=== PATIENT | male | born 1970 | race African-American/Black ===

== ENCOUNTER 2016-12-01 08:10 | Emergency (ER) | payer MEDICARE, OTHER ==
[~2016-12-01] VITALS: Ht 175.3 cm; Wt 128.6 kg
[~2016-12-01 08:10] MED LIST: AMLO10TA2 PO; AMLO5TAB2 PO; Albuterol Sulfate NEB; CALC667C6 PO; CARV6.25 PO; CETI10TA16 PO; CHOL2000 PO; CINA30TA; CYCL10TA2 PO; DARB100D SQ; DIALYVITE PO; DILT360C PO; FLUT16SP NS; FLUT9.9S NS; FURO80TA72 PO; Guaifenesin PO; HUM100VI SQ; INSU100C SQ; INSU100V13 SQ; LEVO500T38 PO; LORA10TA3 PO; LOSA50TA2 PO; MONT10TA6 PO; Non Formulary Item SQ; ONDA4TAB10 PO; SEVE800T9 PO; Sodium Chloride NS; [UNRECOGNIZED DRUG - CODE] SQ
--- NOTE | 2016-12-01 08:42 | PHYS DOC ---
Past Medical History Past Medical History: Diabetes-Type II, Hypertension, Renal Failure, Other Past Surgical History: Other Additional Past Surgical Histo: Left arm A/V fistula ,left retna tear Additional Information: nonsmoker Alcohol Use: None Drug Use: None Adult General Chief Complaint Chief Complaint: HYPOTENSION HPI HPI Patient is a 46 year old male with history of ESRD on HD MWF, DM II, and HTN who presents with report of near-syncopal event during dialysis today. The patient was in the middle of his dialysis when he felt the need to have a bowel movement. He got up to go to the bathroom and felt lightheaded. He had some abdominal cramping and felt nauseated. He vomited once. Staff at the dialysis center reported that they observed what appeared to be some seizure-like activity. The patient reports that he remembers all of the events. He did not lose consciousness. He did not have any incontinence of bowel or bladder. He denies having chest pain, shortness of breath, or headache. The abdominal cramping has resolved, as has the nausea. He feels back to normal without any complaints upon arrival to the emergency department. EMS reported GCS of 15 upon their arrival to the dialysis center without any post-ictal signs. The patient's PCP is Dr. Meghan Cooper. Dr. 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 Review of Systems Review of Systems Constitutional: Denies fever or chills. [] Eyes: Denies change in visual acuity, redness, or eye pain. [] HENT: Denies ear pain, nasal congestion or sore throat. [] Respiratory: Denies cough or shortness of breath. [] Cardiovascular: Denies chest pain, palpitations or edema. [] GI: Denies bloody stools or diarrhea. Reports nausea with one episode of emesis and abdominal cramping, resolved. : Denies dysuria, hematuria or urinary frequency. [] Musculoskeletal: Denies back pain or joint pain. [] Integument: Denies rash or skin lesions. [] Neurologic: Denies headache, focal weakness or sensory changes. Denies incontinence or seizure activity. Reports feeling lightheaded, now resolved. Endocrine: Denies polyuria or polydipsia. [] Psych: Denies anxiety or depression. [] All systems reviewed and negative unless otherwise stated in the HPI. Allergies Allergies Allergies Coded Allergies Type Severity Reaction Last Updated Verified Penicillins Allergy Intermediate 08/04/14 Yes Physical Exam Physical Exam Constitutional: Well developed, well nourished, no acute distress, non-toxic appearance. [] HENT: Normocephalic, atraumatic, bilateral external ears normal, oropharynx moist, no oral exudates, nose normal. [] Eyes: PERRLA, EOMI, no discharge. 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 Neck: Normal range of motion, no tenderness, supple, no stridor. [] Cardiovascular: Heart rate regular rhythm, no murmur [] Lungs & Thorax: Bilateral breath sounds clear to auscultation without wheezes, rales, or rhonchi. Abdomen: Bowel sounds normal, soft, no tenderness, no masses, no pulsatile masses. [] Skin: Warm, dry, no erythema, no rash. [] Back: No tenderness, no CVA tenderness. [] Extremities: No tenderness, no cyanosis, no clubbing, ROM intact, no edema. 2+ pedal pulses bilaterally. There is a palpable thrill in the dialysis shunt in the left upper extremity. Neurologic: Alert and oriented X 3, normal motor function, normal sensory function, no focal deficits noted. CN II-XII grossly intact. Psychologic: Affect normal, judgement normal, mood normal. [] Current Patient Data Vital Signs Vital Signs Date Time Temp Pulse Resp B/P Pulse Ox O2 Delivery O2 Flow Rate FiO2 12/01/16 12:27 80 18 165/98 99 Room Air 12/01/16 08:10 97.9 97.9 Lab Values Laboratory Tests Test 12/01/16 08:50 12/01/16 11:15 White Blood Count 4.1x10^3/uL (4.0-11.0) Red Blood Count 4.17x10^6/uL (4.30-5.70) L Hemoglobin 13.2g/dL (13.0-17.5) Hematocrit 40.6% (39.0-53.0) Mean Corpuscular Volume 97fL (79-100) Mean Corpuscular Hemoglobin 32pg (25-35) Mean Corpuscular Hemoglobin Concent 33g/dL (31-37) Red Cell Distribution Width 15.9% (11.5-14.5) H Platelet Count 178x10^3/uL (140-400) Neutrophils (%) (Auto) 60% (31-73) Lymphocytes (%) (Auto) 31% (24-48) Monocytes (%) (Auto) 6% (0-9) Eosinophils (%) (Auto) 1% (0-3) Basophils (%) (Auto) 1% (0-3) Neutrophils # (Auto) 2.4x10^3uL (1.8-7.7) Lymphocytes # (Auto) 1.3x10^3/uL (1.0-4.8) Monocytes # (Auto) 0.2x10^3/uL (0.0-1.1) Eosinophils # (Auto) 0.1x10^3/uL (0.0-0.7) Basophils # (Auto) 0.1x10^3/uL (0.0-0.2) Sodium Level 140mmol/L (136-145) Potassium Level 4.7mmol/L (3.5-5.1) Chloride Level 96mmol/L (98-107) L Carbon Dioxide Level 34mmol/L (21-32) H Anion Gap 10 (6-14) Blood Urea Nitrogen 73mg/dL (8-26) H Creatinine 13.2mg/dL (0.7-1.3) H Estimated GFR (Cockcroft-Gault) 5.0 Glucose Level 105mg/dL (70-99) H Calcium Level 9.5mg/dL (8.5-10.1) Magnesium Level 2.5mg/dL (1.8-2.4) H Total Bilirubin 0.4mg/dL (0.2-1.0) Direct Bilirubin 0.1mg/dL (0.0-0.2) Aspartate Amino Transferase (AST) 12U/L (15-37) L Alanine Aminotransferase (ALT) 21U/L (16-63) Alkaline Phosphatase 128U/L (46-116) H Creatine Kinase 214U/L (39-308) Creatine Kinase MB (Mass) 1.5ng/mL (0.0-3.6) Creatine Kinase MB Relative Index 0.7% (0-4) Troponin I Quantitative < 0.017ng/mL (0.000-0.055) < 0.017ng/mL (0.000-0.055) BQ-Dvg-Z-Type Natriuretic Peptide 589pg/mL (0-124) H Total Protein 8.2g/dL (6.4-8.2) Albumin 4.5g/dL (3.4-5.0) Lipase 337U/L (73-393) Laboratory Tests 12/01/16 08:50 Laboratory Tests 12/01/16 08:50 EKG EKG EKG at 0841. Heart rate 80 bpm. Sinus rhythm with T-wave inversion in lead aVL. There is no STEMI. Interpreted by Dr. Robles. Radiology/Procedures Radiology/Procedures REASON: near-syncope after dialysis PROCEDURE: PORTABLE CHEST 1V Portable AP upright view CXR: Clinical indications: Blood pressure dropped during dialysis this a.m. History of high blood pressure. Diabetes. Renal disease.. Comparison: July 21, 2016. Findings: No acute lung infiltrate or pleural effusion or pulmonary edema or lung mass or pneumothorax is seen. The heart size, pulmonary vasculature, mediastinum and both nahun are stable. Impression: No acute radiographic abnormality is seen. Course & Med Decision Making Course & Med Decision Making Pertinent Labs and Imaging studies reviewed. (See chart for details) The patient is a 46-year-old male with history of ESRD on HD with DM 2 and HTN who presents after near syncopal episode while at dialysis today. Upon arrival to the emergency department, he does not have any complaints. Vital signs are stable. EKG shows T-wave inversion of aVL without any other acute ischemic changes or STEMI. Chest x-ray is unremarkable. Labs are stable. Initial troponin is negative. The patient agreed to stay in the emergency department for a repeat troponin level to be drawn. The repeat troponin level was negative as well. The patient remained stable in the emergency department without any additional complaints. Return precautions were discussed. He verbalizes understanding and agrees with plan. He is discharged home in stable condition. Patient course was discussed with Dr. Robles, attending physician in the emergency department, who agrees with evaluation and plan. Dragon Disclaimer Dragon Disclaimer This electronic medical record was generated, in whole or in part, using a voice recognition dictation system. Departure Departure Impression: Primary Impression: Near syncope Disposition: HOME, SELF-CARE Condition: STABLE Referrals: MEGHAN COOPER MD (PCP) Patient Instructions: Near-Syncope, [id number] Additional Instructions: You were seen after near-syncope, or nearly passing out, at dialysis. Your labs, chest xray, and EKG were normal today. Please continue with your regularly scheduled dialysis appointments. Please follow up with your primary care doctor in the next 2-3 days, sooner if concerns. Return to the emergency department if you have any new or concerning symptoms. GAUTAM HIDALGO Dec 01, 2016 08:42
--- NOTE | 2016-12-01 08:55 | RAD ---
Portable AP upright view CXR: Clinical indications: Blood pressure dropped during dialysis this a.m. History of high blood pressure. Diabetes. Renal disease.. Comparison: July 21, 2016. Findings: No acute lung infiltrate or pleural effusion or pulmonary edema or lung mass or pneumothorax is seen. The heart size, pulmonary vasculature, mediastinum and both nahun are stable. Impression: No acute radiographic abnormality is seen.
[2016-12-01 09:16] LABS: CALCIUM 9.5 mg/dL (8.5-10.1); CREATININE 13.2 mg/dL (0.7-1.3); POTASSIUM 4.7 mmol/L (3.5-5.1)
[2016-12-01 09:18] LABS: BASO # 0.1 x10^3/uL (0.0-0.2); BASO % 1 % (0-3); EOS % 1 % (0-3); HEMATOCRIT 40.6 % (39.0-53.0); HEMOGLOBIN 13.2 g/dL (13.0-17.5); LYMPH # 1.3 x10^3/uL (1.0-4.8); LYMPH % 31 % (24-48); MEAN CORPUSCULAR HEMOGLOBIN 32 pg (25-35); MEAN CORPUSCULAR HGB CONC 33 g/dL (31-37); MEAN CORPUSCULAR VOLUME 97 fL (79-100); MONO % 6 % (0-9); NEUT % 60 % (31-73); PLATELET COUNT 178 x10^3/uL (140-400); RED BLOOD COUNT 4.17 x10^6/uL (4.30-5.70); RED CELL DISTRIBUTION WIDTH 15.9 % (11.5-14.5); WHITE BLOOD COUNT 4.1 x10^3/uL (4.0-11.0)
[2016-12-01 09:22] LABS: ALBUMIN 4.5 g/dL (3.4-5.0); DIRECT BILIRUBIN 0.1 mg/dL (0.0-0.2); MAGNESIUM 2.5 mg/dL (1.8-2.4); TOTAL BILIRUBIN 0.4 mg/dL (0.2-1.0); TOTAL PROTEIN 8.2 g/dL (6.4-8.2)
[2016-12-01 09:31] LABS: CKMB INDEX 0.7 % (0-4); CKMB MASS 1.5 ng/mL (0.0-3.6)
[2016-12-01 12:27] VITALS: BP 165/98
--- NOTE | 2016-12-01 14:04 | EKG ---
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
== END 2016-12-01 12:28 | disposition home or self-care (01) ==
LOC: ER 08:10
DX: R55 Syncope and collapse (principal); E11.22 Type 2 diabetes mellitus with diabetic chronic kidney disease; N18.9 Chronic kidney disease, unspecified; Z99.2 Dependence on renal dialysis; Z88.0 Allergy status to penicillin
CPT/HCPCS: 36415; 71010; 80048; 80076; 82553; 83690; 83735; 83880; 84484; 85027; 93005; 99285-25

== ENCOUNTER → 2016-12-17 | Outpatient (CLI) | payer MEDICARE, OTHER ==
[2016-12-01 12:27] VITALS: BP 165/98
--- NOTE | 2016-12-17 16:00 | KCIC ---
Right hip, two views Indication: Chronic right hip pain. Time of exam 3:42 p.m. Two views of the right hip demonstrate normal femoral acetabular alignment. The joint space is fairly well maintained. The femoral head and neck are intact. No fractures are seen. Impression: No acute bony abnormality is detected. Electronically signed by: Dean Chery MD (Dec 17, 2016 15:58:47)
== END | disposition home or self-care (01) ==
LOC: KCIC 15:15
PROVIDERS: ATTEND Family Medicine
DX: M25.551 Pain in right hip (principal); G89.29 Other chronic pain
CPT/HCPCS: 73502

== ENCOUNTER 2017-01-30 08:13 | Inpatient (IN) | payer MEDICARE, OTHER ==
[~2017-01-30] VITALS: Ht 175.3 cm; Wt 132.6 kg
[~2017-01-30 08:13] MED LIST changes: -CINA30TA; +CINA30TA2 PO; -LEVO500T38 PO; +LEVO500T59 PO
--- NOTE | 2017-01-30 08:37 | RAD ---
Indication shortness of air and cough. A single view of the chest was obtained and is compared to a study 2 months earlier. No acute finding is seen. Heart and pulmonary vessels are similar. There has been no significant change compared to the previous exam. IMPRESSION: No acute or focal process. No significant change
--- NOTE | 2017-01-30 08:56 | PHYS DOC ---
Past Medical History Past Medical History: Diabetes-Type II, Hypertension, Renal Failure, Other Past Surgical History: Other Additional Past Surgical Histo: Left arm A/V fistula 4\2012,left retna tear Alcohol Use: None Drug Use: None Adult General Chief Complaint Chief Complaint: SHORTNESS OF BREATH [facility] HPI Patient is a 46 year old male presenting to the emergency department for evaluation of cough shortness of breath and concerns for fluid overload. Patient is a Tuesday dialysis patient received his dialysis 2 days ago as scheduled but he says that he has some postnasal drip and cough and feel short of breath. He says that this intermittent and happens for he requires more frequent dialysis. His pen maker is Dr. Peña and his primary care physician is Dr. Cooper. The pain fevers chills nausea vomiting or other systemic symptoms. Patient is nontoxic-appearing but is slightly hypoxic at 87 % on room air. Review of Systems Review of Systems Constitutional: Denies fever or chills [] Eyes: Denies change in visual acuity, redness, or eye pain [] HENT: Denies nasal congestion or sore throat [] Respiratory: + cough and shortness of breath [] Cardiovascular: No additional information not addressed in HPI [] GI: Denies abdominal pain, nausea, vomiting, bloody stools or diarrhea [] : Denies dysuria or hematuria [] Musculoskeletal: Denies back pain or joint pain [] Integument: Denies rash or skin lesions [] Neurologic: Denies headache, focal weakness or sensory changes [] Allergies Allergies Allergies Coded Allergies Type Severity Reaction Last Updated Verified Penicillins Allergy Intermediate 08/04/14 Yes Physical Exam Physical Exam Constitutional: Well developed, well nourished, no acute distress, non-toxic appearance. [] HENT: Normocephalic, atraumatic, bilateral external ears normal, oropharynx moist, no oral exudates, nose normal. [] Eyes: PERRLA, EOMI, conjunctiva normal, no discharge. [] Neck: Normal range of motion, no tenderness, supple, no stridor. [] Cardiovascular:Heart rate regular rhythm, no murmur [] Lungs & Thorax: Bilateral breath sounds clear to auscultation [] Abdomen: Bowel sounds normal, soft, no tenderness, no masses, no pulsatile masses. [] Skin: Warm, dry, no erythema, no rash. [] Back: No tenderness, no CVA tenderness. [] Extremities: No tenderness, no cyanosis, no clubbing, ROM intact, no edema. [] Neurologic: Alert and oriented X 3, normal motor function, normal sensory function, no focal deficits noted. [] Current Patient Data Vital Signs Vital Signs Date Time Temp Pulse Resp B/P (MAP) Pulse Ox O2 Delivery O2 Flow Rate FiO2 01/30/17 08:19 98.4 85 12 161/87 (111) 95 Room Air 98.4 Lab Values Laboratory Tests Test 01/30/17 09:07 White Blood Count 4.2 x10^3/uL (4.0-11.0) Red Blood Count 3.38 x10^6/uL (4.30-5.70) L Hemoglobin 11.3 g/dL (13.0-17.5) L Hematocrit 32.6 % (39.0-53.0) L Mean Corpuscular Volume 97 fL (79-100) Mean Corpuscular Hemoglobin 33 pg (25-35) Mean Corpuscular Hemoglobin Concent 35 g/dL (31-37) Red Cell Distribution Width 15.7 % (11.5-14.5) H Platelet Count 172 x10^3/uL (140-400) Neutrophils (%) (Auto) 55 % (31-73) Lymphocytes (%) (Auto) 31 % (24-48) Monocytes (%) (Auto) 11 % (0-9) H Eosinophils (%) (Auto) 3 % (0-3) Basophils (%) (Auto) 1 % (0-3) Neutrophils # (Auto) 2.3 x10^3uL (1.8-7.7) Lymphocytes # (Auto) 1.3 x10^3/uL (1.0-4.8) Monocytes # (Auto) 0.4 x10^3/uL (0.0-1.1) Eosinophils # (Auto) 0.1 x10^3/uL (0.0-0.7) Basophils # (Auto) 0.0 x10^3/uL (0.0-0.2) Prothrombin Time 14.1 SEC (11.7-14.0) H Prothrombin Time INR 1.2 (0.8-1.1) H PTT 31 SEC (24-38) Sodium Level 141 mmol/L (136-145) Potassium Level 6.2 mmol/L (3.5-5.1) *H Chloride Level 96 mmol/L (98-107) L Carbon Dioxide Level 29 mmol/L (21-32) Anion Gap 16 (6-14) H Blood Urea Nitrogen 106 mg/dL (8-26) H Creatinine 15.8 mg/dL (0.7-1.3) H Estimated GFR (Cockcroft-Gault) 4.0 BUN/Creatinine Ratio 7 (6-20) Glucose Level 152 mg/dL (70-99) H Calcium Level 8.2 mg/dL (8.5-10.1) L Magnesium Level 2.5 mg/dL (1.8-2.4) H Total Bilirubin 0.5 mg/dL (0.2-1.0) Aspartate Amino Transferase (AST) 12 U/L (15-37) L Alanine Aminotransferase (ALT) 16 U/L (16-63) Alkaline Phosphatase 90 U/L (46-116) Troponin I Quantitative < 0.017 ng/mL (0.000-0.055) QR-Dcr-O-Type Natriuretic Peptide 882 pg/mL (0-124) H Total Protein 7.6 g/dL (6.4-8.2) Albumin 3.8 g/dL (3.4-5.0) Albumin/Globulin Ratio 1.0 (1.0-1.7) Laboratory Tests 01/30/17 09:07 Laboratory Tests 01/30/17 09:07 EKG EKG Sinus rhythm at 88 beats per minutes with normal axis no obvious ST elevation or depression and normal T waves Radiology/Procedures Radiology/Procedures Indication shortness of air and cough. A single view of the chest was obtained and is compared to a study 2 months earlier. No acute finding is seen. Heart and pulmonary vessels are similar. There has been no significant change compared to the previous exam. IMPRESSION: No acute or focal process. No significant change DICTATED and SIGNED BY: DAVIN HERNANDEZ MD DATE: 01/30/17 4402 Course & Med Decision Making Course & Med Decision Making Patient will get labs x-ray and likely require admission. Patient is hyperkalemic and likely fluid overloaded. To Dr. Mercado of nephrology and he said that his dialysis nurse is present and that he does not want me giving any medications and just said to send the patient upstairs for emergent dialysis. Patient admitted to ICU in guarded condition. Care time of 35 minutes. Dragon Disclaimer Dragon Disclaimer This electronic medical record was generated, in whole or in part, using a voice recognition dictation system. Departure Departure Impression: Primary Impression: Hyperkalemia Additional Impressions: End-stage renal disease on hemodialysis Dyspnea Hypoxia Disposition: ADMITTED INPATIENT Admitting Physician: Other (REUSCH) Condition: GUARDED Referrals: MEGHAN COOPER MD (PCP) Problem Qualifiers ALBINA DONATO DO Jan 30, 2017 08:56
[2017-01-30 09:19] LABS: BASO % 1 % (0-3); EOS % 3 % (0-3); HEMATOCRIT 32.6 % (39.0-53.0); HEMOGLOBIN 11.3 g/dL (13.0-17.5); LYMPH # 1.3 x10^3/uL (1.0-4.8); LYMPH % 31 % (24-48); MEAN CORPUSCULAR HEMOGLOBIN 33 pg (25-35); MEAN CORPUSCULAR HGB CONC 35 g/dL (31-37); MEAN CORPUSCULAR VOLUME 97 fL (79-100); MONO % 11 % (0-9); NEUT % 55 % (31-73); PLATELET COUNT 172 x10^3/uL (140-400); RED BLOOD COUNT 3.38 x10^6/uL (4.30-5.70); RED CELL DISTRIBUTION WIDTH 15.7 % (11.5-14.5); WHITE BLOOD COUNT 4.2 x10^3/uL (4.0-11.0)
[2017-01-30 09:34] LABS: ALBUMIN 3.8 g/dL (3.4-5.0); CALCIUM 8.2 mg/dL (8.5-10.1); CREATININE 15.8 mg/dL (0.7-1.3); MAGNESIUM 2.5 mg/dL (1.8-2.4); TOTAL BILIRUBIN 0.5 mg/dL (0.2-1.0); TOTAL PROTEIN 7.6 g/dL (6.4-8.2)
[2017-01-30 09:38] LABS: INR 1.2 (0.8-1.1); POTASSIUM 6.2 mmol/L (3.5-5.1); PROTHROMBIN TIME PATIENT 14.1 SEC (11.7-14.0)
[2017-01-30] MEDS ORDERED: fentaNYL PF VIAL 100 MCG/2 ML VIAL IV PRN (09:45)
[2017-01-30] MEDS ORDERED: ONDANSETRON PF 4 MG/2 ML VIAL. IV PRN (09:49)
[2017-01-30] MEDS ORDERED: CALCIUM GLUCONATE 1,000 MG/10 ML VIAL. IVP ONE (10:00)
[2017-01-30] MEDS ORDERED: DEXTROSE 50% 25 GM / 50ML DISP.SYRIN. IV ONE (10:00)
[2017-01-30] MEDS ORDERED: ALBUTEROL SULFATE 2.5 MG/3 ML NEBU. NEB ONE (10:00)
[2017-01-30] MEDS ORDERED: INSULIN REGULAR 100 UNIT/ML 10ML VIAL. IV ONE (10:00)
[2017-01-30] MEDS ORDERED: IV NORMAL SALINE 1000ML BAG 1,000 ML IV PRN ×2 (10:23)
[2017-01-30] MEDS ORDERED: diphenhydrAMINE 50 MG/ML VIAL IV PRN (10:30)
[2017-01-30] MEDS ORDERED: DIALYSIS PATIENT. MC PRN (10:30)
[2017-01-30] MEDS ORDERED: CHOL2000 PO (11:29)
--- NOTE | 2017-01-30 12:39 | EKG ---
[facility] [address] [place] [address] Test Date: 2017-01-30 Test Time: 08:38:08 Pat Name: JERMAIN GARZA Department: Room: 2 Gender: M Chip Person: : 1970 Requested By: ALBINA DONATO Order Number: [id number] Reading MD: Cintia Flores Measurements Intervals [place] Rate: 88 P: 36 [place]: 156 QRS: 17 QRSD: 84 T: 39 QT: 392 QTc: 478 Interpretive Statements SINUS RHYTHM NORMAL EKG Electronically Signed On 01-30-2017 21:27:38 CDT by Cintia Flores
--- NOTE | 2017-01-30 13:19 | ACF ---
Admission Forms Criteria HYPONATREMIA; HYPERNATREMIA; HYPOKALEMIA; HYPERKALEMIA; HYPOCALCEMIA; HYPERCALCEMIA Clinical Indications for Inpatient Care (Place 'X' for any and all applicable criteria): Ongoing inpatient care may be indicated for ANY ONE of the following [G](1)(2)(3 )(5): [ ]I. Hyponatremia with ANY ONE of the following: [ ]a) Sodium less than 130 mEq/L (mmol/L) (new) (6)(22) [ ]b) Sodium less than 135 mEq/L (mmol/L) with ANY ONE of the following: [ ]i) Severe medical etiology requiring inpatient management (eg, heart failure, hypovolemia) [ ]ii) Altered mental status [ ]iii) Seizures [ ]II. Hypernatremia with ANY ONE of the following: [ ]a) Sodium greater than 155 mEq/L (mmol/L) [ ]b) Sodium greater than 150 mEq/L (mmol/L) with ANY ONE of the following: [ ] i) Altered mental status [ ]ii) Seizures [ ]iii) Severe medical etiology (eg, hypovolemia, diabetes insipidus) [ ]iv) Severe weakness [ ]v) Severe medical etiology (eg, hemolysis, infection, drug overdose) [ ]III. Hypokalemia with ANY ONE of the following: [ ]a) Potassium less than 2.5 mEq/L (mmol/L) despite outpatient and emergency treatment [ ]b) Potassium less than 3.0 mEq/L (mmol/L) with ANY ONE of the following: [ ]i) Weakness [ ]ii) Cardiac abnormality (eg, arrhythmia, conduction disturbance) [ ]iii) Cardiac ischemia [ ]iv) Ileus [ ]v) Ongoing medical cause requiring inpatient management. ( e.g., acute renal wasting, SIADH) [ ]vi) Other severe symptoms [X] IV. Hyperkalemia with ANY ONE of the following: [ ]a) Potassium greater than 6.5 mEq/L (mmol/L) [X]b) Potassium greater than 5 mEq/L (mmol/L) with ANY ONE of the following: [ ]i) Severe ECG findings [H] [X]ii) Acute worsening of renal failure (creatinine greater than 2.5 mg/dL (221 micromoles/L) or significant elevation for age and size) [ ] V. Hypocalcemia with ANY ONE of the following: [ ]a) Calcium less than 7 mg/dL (1.75 mmol/L) despite outpatient and emergency treatment(19) [ ]b) Calcium less than 8 mg/dL (2 mmol/L) with significant symptoms or findings; examples include: [ ]i) Cardiac abnormality (eg, arrhythmia or conduction disturbance) [ ]ii) Altered mental status [ ]iii) Seizures [ ]iv) Breathing difficulty [ ]v) Muscle spasms [ ]. Hypercalcemia with ANY ONE of the following: [ ]a) Calcium greater than 14 mg/dL (3.5 mmol/L) [ ]b) Calcium greater than 12 mg/dL (3 mmol/L) with ANY ONE of the following: [ ]i) Significant dehydration or hypovolemia as indicated by ANY ONE of the following(2): [ ]1. Clinically significant dehydration as indicated by ANY ONE of the following: [ ]A. Acute loss of weight from baseline (5% of body weight in adults, 9% in pediatric patients) [ ]B. Hemodynamic instability [ ]C. Acute renal failure [ ]D. Serum sodium greater than 150 mEq/L (mmol/L) [ ]2) Dehydration that is persistent indicated by ALL of the following: [ ]A. Oral rehydration therapy not tolerated or insufficient to adequately correct dehydration [ ]B. Appropriate intravenous treatment (eg, fluids ) does not readily correct dehydration ie, after 12 to 24 hours of treatment) [ ]ii) Significant symptoms or findings; examples include: [ ]1) Altered mental status [ ]2) Cardiac abnormality (eg, arrhythmia, conduction disturbance) [ ]3) Cardiac abnormality (eg, arrhythmia, conduction disturbance) The original [facility] [employer] content created by [facility] [employer] has been revised. The portions of the content which have been revised are identified through the use of italic text or in bold, and [facility] has neither reviewed nor approved the modified material. All other unmodified content is copyright [facility] [employer] Please see references footnoted in the original [facility] [employer] edition 2016 Admission Criteria Met?: Yes EMILY CADE Jan 30, 2017 13:19
[2017-01-30 14:49] VITALS: BP 141/80
[2017-01-30 14:52] VITALS: BP 141/80
[2017-01-30] MEDS ORDERED: HYDROcodone/APAP 5/325MG 1 TAB TABLET PO PRN (17:15)
[2017-01-30] MEDS ORDERED: diphenhydrAMINE HCL 25 MG CAPSULE PO PRN (17:15)
[2017-01-30] MEDS ORDERED: INSULIN ASPART 300 UNITS/3 ML INSULN.PEN SQ ONE (17:30)
[2017-01-30 19:20] VITALS: BP 151/85
[2017-01-30 20:19] VITALS: BP 151/85
--- NOTE | 2017-01-30 20:45 | HP ---
ADMIT DATE: 01/30/2017 CHIEF COMPLAINT: Shortness of breath, abdominal pain. HISTORY OF PRESENT ILLNESS: The patient is a 46-year-old, obese, -[place] gentleman with past medical history of end-stage renal disease on dialysis Tuesday, Tuesday and Tuesday, who presented to the Emergency Room with shortness of breath, some cough and abdominal pain. He feels that this is similar to previous presentations when he was found to require additional dialysis. He denies any other symptoms including fevers, chills, chest pain or significant cough. In the Emergency Room, he was found with a critical potassium of 6.3 and was therefore immediately taken to dialysis. PAST MEDICAL HISTORY: End-stage renal disease, hypertension, diabetes mellitus, obstructive sleep apnea, congestive heart failure with mild diastolic dysfunction, impaired vision, allergic rhinitis. PAST SURGICAL HISTORY: Multiple surgeries on left eye (retinal tear). FAMILY HISTORY: No other renal patients in family. SOCIAL HISTORY: The patient is , living with his . No toxic habits. ALLERGIES: PENICILLIN. MEDICATIONS: MAR was reconciled with home medications. REVIEW OF SYSTEMS: Positive as per HPI. Rest of organ system review is essentially negative. PHYSICAL EXAMINATION: VITAL SIGNS: From today show a blood pressure of 141/80, heart rate at 93, respiratory rate at 18. He is afebrile. GENERAL: This is a morbidly obese, 46-year-old, -[place] gentleman lying in bed, very flat affect. HEENT: Shows no scleral icterus. NECK: Supple. LUNGS: Clear anteriorly. HEART: Regular rate and rhythm. ABDOMEN: Obese, positive bowel sounds. EXTREMITIES: Show trace edema, no clubbing, no cyanosis. SKIN: Warm, soft and dry. LABORATORY DATA: CBC with a WBC of 4.2, hemoglobin 11.3, platelets of 172. Chemistries with a BUN and creatinine of 106/15.8, potassium at 6.2, sodium 141, CO2 at 29 and mag at 2.5. LFTs within normal limits. ProBNP 882. IMAGING STUDIES: Chest x-ray obtained in the Emergency Room shows no acute or focal process. ASSESSMENT AND PLAN: The patient is a 46-year-old gentleman with end-stage renal disease, on dialysis, now presenting with signs and symptoms of fluid overload and hyperkalemia. Both of these issues have been addressed emergently with dialysis. He feels a bit better. We will continue to monitor his electrolytes. Appreciate Nephrology help with management of this patient. We will continue all his home medications at this time. MATY NIELSEN MD DR: LUCY/ольга JOB#: [id number] / [id number]
[2017-01-30] MEDS: CETIRIZINE HCL 10 MG TABLET. PO SCH (21:02)
[2017-01-30] MEDS: INSULIN DETEMIR 300 UNITS/3 ML INSULN.PEN. SQ SCH (21:08)
[2017-01-30 23:25] VITALS: BP 142/68
--- NOTE | 2017-01-30 23:44 | PDOC2 ---
Consult: RENAL CONSULT / LLOYD. CHIEF COMPLAINT: ESRD, DYSPNEA. HISTORY OF PRESENT ILLNESS: The patient is a 46-year-old, obese, -[place] gentleman with past medical history of end-stage renal disease on dialysis Tuesday, Tuesday and Tuesday, at [facility]. He presented to the Emergency Room at [facility] with shortness of breath, some cough and abdominal pain. He feels that this is similar to previous presentations when he was found to require additional dialysis. He denies any other symptoms including fevers, chills, chest pain or significant cough. In the Emergency Room, he was found with a critical potassium of 6.3 and was therefore immediately taken to dialysis. No change in meds. Is eating better. Does consume a lot of fluids. PAST MEDICAL HISTORY: End-stage renal disease, hypertension, diabetes mellitus, obstructive sleep apnea, congestive heart failure with mild diastolic dysfunction, impaired vision, allergic rhinitis. PAST SURGICAL HISTORY: Multiple surgeries on left eye (retinal tear). FAMILY HISTORY: No other renal patients in family. SOCIAL HISTORY: The patient is , living with his . No toxic habits. ALLERGIES: PENICILLIN. MEDICATIONS: MAR was reconciled with home medications. REVIEW OF SYSTEMS: Positive as per HPI. Rest of organ system review is essentially negative. PHYSICAL EXAMINATION: VITAL SIGNS: From today show a blood pressure of 141/80, heart rate at 93, respiratory rate at 18. He is afebrile. GENERAL: This is a morbidly obese, 46-year-old, -[place] gentleman lying in bed, very flat affect. HEENT: Shows no scleral icterus. NECK: Supple. LUNGS: Clear anteriorly. HEART: Regular rate and rhythm. ABDOMEN: Obese, positive bowel sounds. EXTREMITIES: Show trace edema, no clubbing, no cyanosis. SKIN: Warm, soft and dry. LABORATORY DATA: CBC with a WBC of 4.2, hemoglobin 11.3, platelets of 172. Chemistries with a BUN and creatinine of 106/15.8, potassium at 6.2, sodium 141, CO2 at 29 and mag at 2.5. LFTs within normal limits. ProBNP 882. IMAGING STUDIES: Chest x-ray obtained in the Emergency Room shows no acute or focal process. ASSESSMENT AND PLAN: ESRD HYPERKALEMIA DYSPNEA HTN w CKD OBESITY HYPOVENTILATION SYND. HD support. Labs. HD again in am. Usually does MWF No RX missed. No issues with access. High K dietry? Advised modify PO fluid intake. Thank you. BAILEY DESAI MD Jan 30, 2017 23:44
[2017-01-31 03:20] VITALS: BP 126/80
[2017-01-31 07:00] VITALS: BP 140/80
[2017-01-31] MEDS: INSULIN DETEMIR 300 UNITS/3 ML INSULN.PEN. SQ SCH (08:00)
[2017-01-31 08:36] LABS: BASO % 1 % (0-3); EOS % 3 % (0-3); HEMATOCRIT 36.2 % (39.0-53.0); HEMOGLOBIN 11.9 g/dL (13.0-17.5); LYMPH # 1.2 x10^3/uL (1.0-4.8); LYMPH % 30 % (24-48); MEAN CORPUSCULAR HEMOGLOBIN 32 pg (25-35); MEAN CORPUSCULAR HGB CONC 33 g/dL (31-37); MEAN CORPUSCULAR VOLUME 98 fL (79-100); MONO % 10 % (0-9); NEUT % 56 % (31-73); PLATELET COUNT 177 x10^3/uL (140-400); RED BLOOD COUNT 3.67 x10^6/uL (4.30-5.70); RED CELL DISTRIBUTION WIDTH 16.1 % (11.5-14.5)
[2017-01-31 08:41] LABS: CALCIUM 8.5 mg/dL (8.5-10.1); CREATININE 14.8 mg/dL (0.7-1.3); GFR 4.4
[2017-01-31] MEDS: ACETAMINOPHEN 325 MG TABLET. PO PRN ×2 (08:47→23:25)
[2017-01-31] MEDS: FLUTICASONE 50MCG/NASAL SPRAY 16GM BOTTLE. NS SCH (08:48)
[2017-01-31 08:51] LABS: POTASSIUM 6.1 mmol/L (3.5-5.1)
[2017-01-31] MEDS ORDERED: CETIRIZINE HCL 10 MG TABLET. PO SCH (09:00)
[2017-01-31] MEDS: INSULIN ASPART 300 UNITS/3 ML INSULN.PEN SQ SCH ×3 (10:00→17:11)
--- NOTE | 2017-01-31 11:24 | PDOC ---
Renal-Progress Notes Subjective Notes Notes NO COMPLAINTS History of Present Illness Hx of present illness STABLE Vitals Vitals Vital Signs Date Time Temp Pulse Resp B/P (MAP) Pulse Ox O2 Delivery O2 Flow Rate FiO2 01/31/17 07:00 98.4 82 18 140/80 (100) 97 Room Air 98.4 01/31/17 03:20 2.0 Weight Weight [ ] I.O. Intake and Output Intake and Output 01/31/17 07:00 Intake Total 1190 ml Balance 1190 ml Intake Oral 1190 ml # Voids 6 Labs Labs Laboratory Tests Test 01/30/17 17:11 01/30/17 18:18 01/30/17 20:44 01/31/17 06:00 Glucose (Fingerstick) 227 mg/dL (70-99) 271 mg/dL (70-99) 160 mg/dL (70-99) White Blood Count 4.0 x10^3/uL (4.0-11.0) Red Blood Count 3.67 x10^6/uL (4.30-5.70) Hemoglobin 11.9 g/dL (13.0-17.5) Hematocrit 36.2 % (39.0-53.0) Mean Corpuscular Volume 98 fL (79-100) Mean Corpuscular Hemoglobin 32 pg (25-35) Mean Corpuscular Hemoglobin Concent 33 g/dL (31-37) Red Cell Distribution Width 16.1 % (11.5-14.5) Platelet Count 177 x10^3/uL (140-400) Neutrophils (%) (Auto) 56 % (31-73) Lymphocytes (%) (Auto) 30 % (24-48) Monocytes (%) (Auto) 10 % (0-9) Eosinophils (%) (Auto) 3 % (0-3) Basophils (%) (Auto) 1 % (0-3) Neutrophils # (Auto) 2.2 x10^3uL (1.8-7.7) Lymphocytes # (Auto) 1.2 x10^3/uL (1.0-4.8) Monocytes # (Auto) 0.4 x10^3/uL (0.0-1.1) Eosinophils # (Auto) 0.1 x10^3/uL (0.0-0.7) Basophils # (Auto) 0.0 x10^3/uL (0.0-0.2) Test 01/31/17 07:17 01/31/17 07:45 Glucose (Fingerstick) 194 mg/dL (70-99) Sodium Level 140 mmol/L (136-145) Potassium Level 6.1 mmol/L (3.5-5.1) Chloride Level 94 mmol/L (98-107) Carbon Dioxide Level 28 mmol/L (21-32) Anion Gap 18 (6-14) Blood Urea Nitrogen 91 mg/dL (8-26) Creatinine 14.8 mg/dL (0.7-1.3) Estimated GFR (Cockcroft-Gault) 4.4 Glucose Level 174 mg/dL (70-99) Calcium Level 8.5 mg/dL (8.5-10.1) Review of Systems Constitutional: yes: alert, oriented Ears/Nose/Throat: Yes: no symptom reported Pulmonary: Yes no symptom reported Gastrointestional: Yes: no symptom reported Psychiatric/Neurological: Yes: no symptom reported Physical Exam General Appearance: no apparent distress Skin: warm Respiratory: bilateral CTA Heart: S1S2 Abdomen: soft, bowel sounds present Neurology: alert, oriented Assessment Assessment IMP HYPERKALEMIA ANEMIA ESRD PLAN HD TODAY UF TO DW ENC LOW K DIET JOHNATHAN MELARA MD Jan 31, 2017 11:24
[2017-01-31] MEDS ORDERED: IV NORMAL SALINE 1000ML BAG 1,000 ML IV PRN (13:18)
--- NOTE | 2017-01-31 13:25 | PDOC ---
PROGRESS NOTES Chief Complaint Chief Complaint ESRD on HD fluid overload, dyspnea improved morbid obesity, BMI 43 hyperkalemia imprvoed e Vitals Vitals Vital Signs Date Time Temp Pulse Resp B/P (MAP) Pulse Ox O2 Delivery O2 Flow Rate FiO2 01/31/17 07:00 98.4 82 18 140/80 (100) 97 Room Air 98.4 01/31/17 03:20 2.0 Physical Exam General: Alert, Oriented X3, Cooperative, mild distress Heart: Regular rate, No murmurs Lungs: Other Abdomen: No hepatosplenomegaly Extremities: No clubbing, Normal pulses, Other (wrinkled skin on LE from prior marked edema, some trace) Skin: No rashes, No significant lesion Labs LABS Laboratory Tests Test 01/30/17 17:11 01/30/17 18:18 01/30/17 20:44 01/31/17 06:00 Glucose (Fingerstick) 227 mg/dL (70-99) 271 mg/dL (70-99) 160 mg/dL (70-99) White Blood Count 4.0 x10^3/uL (4.0-11.0) Red Blood Count 3.67 x10^6/uL (4.30-5.70) Hemoglobin 11.9 g/dL (13.0-17.5) Hematocrit 36.2 % (39.0-53.0) Mean Corpuscular Volume 98 fL (79-100) Mean Corpuscular Hemoglobin 32 pg (25-35) Mean Corpuscular Hemoglobin Concent 33 g/dL (31-37) Red Cell Distribution Width 16.1 % (11.5-14.5) Platelet Count 177 x10^3/uL (140-400) Neutrophils (%) (Auto) 56 % (31-73) Lymphocytes (%) (Auto) 30 % (24-48) Monocytes (%) (Auto) 10 % (0-9) Eosinophils (%) (Auto) 3 % (0-3) Basophils (%) (Auto) 1 % (0-3) Neutrophils # (Auto) 2.2 x10^3uL (1.8-7.7) Lymphocytes # (Auto) 1.2 x10^3/uL (1.0-4.8) Monocytes # (Auto) 0.4 x10^3/uL (0.0-1.1) Eosinophils # (Auto) 0.1 x10^3/uL (0.0-0.7) Basophils # (Auto) 0.0 x10^3/uL (0.0-0.2) Test 01/31/17 07:17 01/31/17 07:45 Glucose (Fingerstick) 194 mg/dL (70-99) Sodium Level 140 mmol/L (136-145) Potassium Level 6.1 mmol/L (3.5-5.1) Chloride Level 94 mmol/L (98-107) Carbon Dioxide Level 28 mmol/L (21-32) Anion Gap 18 (6-14) Blood Urea Nitrogen 91 mg/dL (8-26) Creatinine 14.8 mg/dL (0.7-1.3) Estimated GFR (Cockcroft-Gault) 4.4 Glucose Level 174 mg/dL (70-99) Calcium Level 8.5 mg/dL (8.5-10.1) Review of Systems Review of Systems weak dizzy did not feel well on HD< bp dropped Assessment and Plan Assessmemt and Plan Problems Medical Problems: (1) Dyspnea Status: Acute (2) End-stage renal disease on hemodialysis Status: Acute (3) Hyperkalemia Status: Acute (4) Hypoxia Status: Acute Problems: Comment Review of Relevant I have reviewed the following items renato (where applicable) has been applied. Labs Laboratory Tests Test 01/30/17 09:07 01/30/17 17:11 01/30/17 18:18 01/30/17 20:44 White Blood Count 4.2 x10^3/uL (4.0-11.0) Red Blood Count 3.38 x10^6/uL (4.30-5.70) Hemoglobin 11.3 g/dL (13.0-17.5) Hematocrit 32.6 % (39.0-53.0) Mean Corpuscular Volume 97 fL (79-100) Mean Corpuscular Hemoglobin 33 pg (25-35) Mean Corpuscular Hemoglobin Concent 35 g/dL (31-37) Red Cell Distribution Width 15.7 % (11.5-14.5) Platelet Count 172 x10^3/uL (140-400) Neutrophils (%) (Auto) 55 % (31-73) Lymphocytes (%) (Auto) 31 % (24-48) Monocytes (%) (Auto) 11 % (0-9) Eosinophils (%) (Auto) 3 % (0-3) Basophils (%) (Auto) 1 % (0-3) Neutrophils # (Auto) 2.3 x10^3uL (1.8-7.7) Lymphocytes # (Auto) 1.3 x10^3/uL (1.0-4.8) Monocytes # (Auto) 0.4 x10^3/uL (0.0-1.1) Eosinophils # (Auto) 0.1 x10^3/uL (0.0-0.7) Basophils # (Auto) 0.0 x10^3/uL (0.0-0.2) Prothrombin Time 14.1 SEC (11.7-14.0) Prothromb Time International Ratio 1.2 (0.8-1.1) Activated Partial Thromboplast Time 31 SEC (24-38) Sodium Level 141 mmol/L (136-145) Potassium Level 6.2 mmol/L (3.5-5.1) Chloride Level 96 mmol/L (98-107) Carbon Dioxide Level 29 mmol/L (21-32) Anion Gap 16 (6-14) Blood Urea Nitrogen 106 mg/dL (8-26) Creatinine 15.8 mg/dL (0.7-1.3) Estimated GFR (Cockcroft-Gault) 4.0 BUN/Creatinine Ratio 7 (6-20) Glucose Level 152 mg/dL (70-99) Calcium Level 8.2 mg/dL (8.5-10.1) Magnesium Level 2.5 mg/dL (1.8-2.4) Total Bilirubin 0.5 mg/dL (0.2-1.0) Aspartate Amino Transf (AST/SGOT) 12 U/L (15-37) Alanine Aminotransferase (ALT/SGPT) 16 U/L (16-63) Alkaline Phosphatase 90 U/L (46-116) Troponin I Quantitative < 0.017 ng/mL (0.000-0.055) YB-Lhf-C-Type Natriuretic Peptide 882 pg/mL (0-124) Total Protein 7.6 g/dL (6.4-8.2) Albumin 3.8 g/dL (3.4-5.0) Albumin/Globulin Ratio 1.0 (1.0-1.7) Glucose (Fingerstick) 227 mg/dL (70-99) 271 mg/dL (70-99) 160 mg/dL (70-99) Test 01/31/17 06:00 01/31/17 07:17 01/31/17 07:45 White Blood Count 4.0 x10^3/uL (4.0-11.0) Red Blood Count 3.67 x10^6/uL (4.30-5.70) Hemoglobin 11.9 g/dL (13.0-17.5) Hematocrit 36.2 % (39.0-53.0) Mean Corpuscular Volume 98 fL (79-100) Mean Corpuscular Hemoglobin 32 pg (25-35) Mean Corpuscular Hemoglobin Concent 33 g/dL (31-37) Red Cell Distribution Width 16.1 % (11.5-14.5) Platelet Count 177 x10^3/uL (140-400) Neutrophils (%) (Auto) 56 % (31-73) Lymphocytes (%) (Auto) 30 % (24-48) Monocytes (%) (Auto) 10 % (0-9) Eosinophils (%) (Auto) 3 % (0-3) Basophils (%) (Auto) 1 % (0-3) Neutrophils # (Auto) 2.2 x10^3uL (1.8-7.7) Lymphocytes # (Auto) 1.2 x10^3/uL (1.0-4.8) Monocytes # (Auto) 0.4 x10^3/uL (0.0-1.1) Eosinophils # (Auto) 0.1 x10^3/uL (0.0-0.7) Basophils # (Auto) 0.0 x10^3/uL (0.0-0.2) Glucose (Fingerstick) 194 mg/dL (70-99) Sodium Level 140 mmol/L (136-145) Potassium Level 6.1 mmol/L (3.5-5.1) Chloride Level 94 mmol/L (98-107) Carbon Dioxide Level 28 mmol/L (21-32) Anion Gap 18 (6-14) Blood Urea Nitrogen 91 mg/dL (8-26) Creatinine 14.8 mg/dL (0.7-1.3) Estimated GFR (Cockcroft-Gault) 4.4 Glucose Level 174 mg/dL (70-99) Calcium Level 8.5 mg/dL (8.5-10.1) Laboratory Tests Test 01/30/17 17:11 01/30/17 18:18 01/30/17 20:44 01/31/17 06:00 Glucose (Fingerstick) 227 mg/dL (70-99) 271 mg/dL (70-99) 160 mg/dL (70-99) White Blood Count 4.0 x10^3/uL (4.0-11.0) Red Blood Count 3.67 x10^6/uL (4.30-5.70) Hemoglobin 11.9 g/dL (13.0-17.5) Hematocrit 36.2 % (39.0-53.0) Mean Corpuscular Volume 98 fL (79-100) Mean Corpuscular Hemoglobin 32 pg (25-35) Mean Corpuscular Hemoglobin Concent 33 g/dL (31-37) Red Cell Distribution Width 16.1 % (11.5-14.5) Platelet Count 177 x10^3/uL (140-400) Neutrophils (%) (Auto) 56 % (31-73) Lymphocytes (%) (Auto) 30 % (24-48) Monocytes (%) (Auto) 10 % (0-9) Eosinophils (%) (Auto) 3 % (0-3) Basophils (%) (Auto) 1 % (0-3) Neutrophils # (Auto) 2.2 x10^3uL (1.8-7.7) Lymphocytes # (Auto) 1.2 x10^3/uL (1.0-4.8) Monocytes # (Auto) 0.4 x10^3/uL (0.0-1.1) Eosinophils # (Auto) 0.1 x10^3/uL (0.0-0.7) Basophils # (Auto) 0.0 x10^3/uL (0.0-0.2) Test 01/31/17 07:17 01/31/17 07:45 Glucose (Fingerstick) 194 mg/dL (70-99) Sodium Level 140 mmol/L (136-145) Potassium Level 6.1 mmol/L (3.5-5.1) Chloride Level 94 mmol/L (98-107) Carbon Dioxide Level 28 mmol/L (21-32) Anion Gap 18 (6-14) Blood Urea Nitrogen 91 mg/dL (8-26) Creatinine 14.8 mg/dL (0.7-1.3) Estimated GFR (Cockcroft-Gault) 4.4 Glucose Level 174 mg/dL (70-99) Calcium Level 8.5 mg/dL (8.5-10.1) Medications Current Medications Albuterol Sulfate (Ventolin Neb Soln) 2.5 mg 1X ONCE NEB Last administered on 01/30/17t 09:50; Start 01/30/17 at 10:00; Stop 01/30/17 at 10:01; Status DC Insulin Human Regular (NovoLIN R VIAL) 10 unit 1X ONCE IV ; Start 01/30/17 at 10:00; Stop 01/30/17 at 10:00; Status DC Dextrose (Dextrose 50%-Water Syringe) 25 gm 1X ONCE IV ; Start 01/30/17 at 10: 00; Stop 01/30/17 at 10:00; Status DC Calcium Gluconate (Calcium Gluconate) 1,000 mg 1X ONCE IVP ; Start 01/30/17 at 10:00; Stop 01/30/17 at 10:00; Status DC Ondansetron HCl (Zofran) 4 mg PRN Q8HRS PRN IV NAUSEA/VOMITING; Start 01/30/17 at 09:49; Stop 01/31/17 at 09:48; Status DC Fentanyl Citrate (Fentanyl 2ml Vial) 50 mcg PRN Q2HR PRN IV PAIN; Start at 09:45; Stop 01/30/17 at 17:08; Status DC Sodium Chloride 1,000 ml @ 1,000 mls/hr Q1H PRN IV hypotension; Start 01/30/17 at 10:23; Stop 01/30/17 at 16:22; Status DC Diphenhydramine HCl (Benadryl) 25 mg 1X PRN PRN IV ITCHING; Start 01/30/17 at 10:30; Stop 01/30/17 at 17:08; Status DC Sodium Chloride 1,000 ml @ 400 mls/hr Q2H30M PRN IV PATENCY; Start 01/30/17 at 10:23; Stop 01/30/17 at 22:22; Status DC Info (PHARMACY MONITORING -- do not chart) 1 each PRN DAILY PRN MC SEE COMMENTS ; Start 01/30/17 at 10:30 Cetirizine HCl (ZyrTEC) 10 mg DAILY PO ; Start 01/31/17 at 09:00; Stop 01/31/17 at 09:00; Status DC Cinacalcet (Sensipar) 30 mg DAILY PO ; Start 01/31/17 at 09:00 Fluticasone Propionate (Flonase) 2 spray DAILY NS Last administered on 08:48; Start 01/31/17 at 09:00 Vitamin D (Vitamin D3) 5,000 unit DAILY PO ; Start 01/31/17 at 09:00 Insulin Detemir (Levemir) 20 units DAILY08 SQ Last administered on 01/30/17 21 :08; Start 01/30/17 at 21:00; Stop 01/31/17 at 12:51; Status DC Insulin Aspart (NovoLOG) 25 units TIDAC SQ ; Start 01/31/17 at 07:30 Vitamin B Complex/ Vitamin C (Isha-Kirk) 1 tab DAILY PO ; Start 01/31/17 at 09: 00 Diphenhydramine HCl (Benadryl) 25 mg PRN Q6HRS PRN PO ITCHING; Start 01/30/17 at 17:15 Acetaminophen (Tylenol) 650 mg PRN Q6HRS PRN PO pain Last administered on 08:47; Start 01/30/17 at 17:15 Acetaminophen/ Hydrocodone Bitart (Lortab 5/325) 1 tab PRN Q4HRS PRN PO PAIN; Start 01/30/17 at 17:15 Insulin Aspart (NovoLOG) 25 units 1X ONCE SQ Last administered on 01/30/17 18 :35; Start 01/30/17 at 17:30; Stop 01/30/17 at 17:31; Status DC Cetirizine HCl (ZyrTEC) 10 mg HS PO Last administered on 01/30/17 21:02; Start 01/30/17 at 21:00 Insulin Detemir (Levemir) 20 units QHS SQ ; Start 01/31/17 at 21:00 Sodium Chloride 1,000 ml @ 1,000 mls/hr Q1H PRN IV hypotension; Start 01/31/17 at 13:18; Stop 01/31/17 at 19:17 Info (PHARMACY MONITORING -- do not chart) 1 each PRN DAILY PRN MC SEE COMMENTS ; Start 01/31/17 at 13:30; Status UNV Info (PHARMACY MONITORING -- do not chart) 1 each PRN DAILY PRN MC SEE COMMENTS ; Start 01/31/17 at 13:30; Status UNV Active Scripts Active Levemir (Insulin Detemir) 100 Unit/1 Ml Vial 20 Unit SQ DAILY Fluticasone Propionate Nasal Statham (Fluticasone Propionate) 16 Gm Statham.susp 2 Statham NS DAILY 30 Days Cetirizine Hcl 10 Mg Tablet 10 Mg PO DAILY 30 Days Reported Vitamin D (Cholecalciferol (Vitamin D3)) 2,000 Unit Capsule 5,000 Unit PO DAILY Sensipar (Cinacalcet Hcl) 30 Mg Tablet 30 Mg PO DAILY [Dialyvite 100-1mg] 1 Mg PO DAILY Humalog (Insulin Lispro) 100 Unit/1 Ml Cartridge 25 Unit SQ TIDBFRMEAL Vitals/I & O Vital Sign - Last 24 Hours 01/30/17 01/30/17 01/30/17 01/30/17 14:30 14:49 14:52 19:20 Temp 97.9 97.9 98.1 97.9 97.9 98.1 Pulse 93 93 104 Resp 18 18 18 B/P (MAP) 141/80 (100) 141/80 (100) 151/85 (107) Pulse Ox 99 99 95 O2 Delivery Nasal Cannula Nasal Cannula Nasal Cannula Nasal Cannula O2 Flow Rate 2.0 2.0 2.0 2.0 01/30/17 01/30/17 01/31/17 01/31/17 20:30 23:25 03:20 07:00 Temp 98.3 98.1 98.4 98.3 98.1 98.4 Pulse 87 80 82 Resp 18 18 18 B/P (MAP) 142/68 (92) 126/80 (95) 140/80 (100) Pulse Ox 95 96 97 O2 Delivery Nasal Cannula Nasal Cannula Nasal Cannula Room Air O2 Flow Rate 2.0 2.0 2.0 Intake and Output 01/30/17 01/30/17 01/31/17 15:00 23:00 07:00 Intake Total 890 ml 300 ml Balance 890 ml 300 ml KARLI FERRARI MD Jan 31, 2017 13:25
[2017-01-31] MEDS ORDERED: DIALYSIS PATIENT. MC PRN ×2 (13:30)
[2017-01-31] MEDS: FOLIC/VIT B COMP W-C (RENAL) TABLET. PO SCH (15:10)
[2017-01-31] MEDS: CHOLECALCIFEROL (VITAMIN D3) 5,000 UNIT CAPSULE PO SCH (15:10)
[2017-01-31] MEDS: CINACALCET HCL 30 MG TABLET PO SCH (15:10)
[2017-01-31 15:13] VITALS: BP 137/88
[2017-01-31 19:00] VITALS: BP 120/65
[2017-01-31] MEDS ORDERED: INSULIN DETEMIR 300 UNITS/3 ML INSULN.PEN. SQ SCH (21:00)
[2017-01-31] MEDS: CETIRIZINE HCL 10 MG TABLET. PO SCH (21:03)
[2017-01-31 23:00] VITALS: BP 119/77
[2017-02-01 07:00] VITALS: BP 121/75
[2017-02-01] MEDS: FOLIC/VIT B COMP W-C (RENAL) TABLET. PO SCH (08:16)
[2017-02-01] MEDS: FLUTICASONE 50MCG/NASAL SPRAY 16GM BOTTLE. NS SCH (08:16)
[2017-02-01] MEDS: CHOLECALCIFEROL (VITAMIN D3) 5,000 UNIT CAPSULE PO SCH (08:17)
[2017-02-01] MEDS: CINACALCET HCL 30 MG TABLET PO SCH (08:17)
[2017-02-01] MEDS: INSULIN ASPART 300 UNITS/3 ML INSULN.PEN SQ SCH ×2 (08:22→12:14)
[2017-02-01 10:54] VITALS: BP 134/71
[2017-02-01 11:01] LABS: ALBUMIN 3.9 g/dL (3.4-5.0); CALCIUM 9.2 mg/dL (8.5-10.1); CREATININE 12.1 mg/dL (0.7-1.3); GFR 5.5; POTASSIUM 5.3 mmol/L (3.5-5.1); TOTAL BILIRUBIN 0.4 mg/dL (0.2-1.0); TOTAL PROTEIN 7.7 g/dL (6.4-8.2)
--- NOTE | 2017-02-01 11:02 | PDOC ---
Renal-Progress Notes Subjective Notes Notes ASLEEP History of Present Illness Hx of present illness STABLE Vitals Vitals Vital Signs Date Time Temp Pulse Resp B/P (MAP) Pulse Ox O2 Delivery O2 Flow Rate FiO2 02/01/17 10:54 97.8 95 20 134/71 (92) 98 Room Air 97.8 01/31/17 20:30 Weight Weight [ ] I.O. Intake and Output Intake and Output 02/01/17 07:00 Intake Total 600 ml Balance 600 ml Intake Oral 600 ml # Voids 1 # Bowel Movements 1 Labs Labs Laboratory Tests Test 01/31/17 14:19 01/31/17 15:19 01/31/17 16:45 01/31/17 21:00 Glucose (Fingerstick) 56 mg/dL (70-99) 150 mg/dL (70-99) 220 mg/dL (70-99) 145 mg/dL (70-99) Test 02/01/17 07:08 02/01/17 09:58 Glucose (Fingerstick) 156 mg/dL (70-99) 204 mg/dL (70-99) Review of Systems Constitutional: yes: no symptom reported, alert, oriented Physical Exam General Appearance: no apparent distress Skin: warm Respiratory: bilateral CTA Heart: S1S2 Abdomen: soft, bowel sounds present Neurology: alert, oriented Assessment Assessment IMP HYPERKALEMIA-HAD HD YESTERDAY ANEMIA ESRD VOLUME OVERLOAD - RESOLVED PLAN HD TOMORROW ENC LOW K DIET JOHNATHAN MELARA MD Feb 01, 2017 11:02
--- NOTE | 2017-02-01 13:47 | EKG ---
[facility] [address] [place] [address] Test Date: 2017-02-01 Test Time: 13:37:44 Pat Name: JERMAIN GARZA Department: Room: 562 Gender: M Ux Lead: KIRAN : 1970 Requested By: KARLI FERRARI Order Number: [id number] Reading MD: Jair Zepeda Measurements Intervals Grants Rate: 92 P: 57 OK: 158 QRS: 44 QRSD: 84 T: 44 QT: 362 QTc: 453 Interpretive Statements SINUS RHYTHM Electronically Signed On 02-01-2017 16:58:52 CDT by Jair Zepeda
[2017-02-01 14:39] VITALS: BP 130/74
== END 2017-02-01 16:15 | disposition home or self-care (01) | DRG 640 ==
LOC: ER 08:13 → 1 WEST ICU 09:34 → 5 SOUTH 11:16
PROVIDERS: ADMIT Internal Medicine Hematology & Oncology; ATTEND Internal Medicine Hematology & Oncology
PROC: 5A1D00Z (ICD-10-PCS; principal; 2017-01-31)
PROC: 5A09357 Assistance with Respiratory Ventilation, Less than 24 Consecutive Hours, Continuous Positive Airway Pressure (ICD-10-PCS; 2017-01-31)
DX: E87.5 Hyperkalemia (principal); N18.6 End stage renal disease; I13.2 Hypertensive heart and chronic kidney disease with heart failure and with stage 5 chronic kidney disease, or end stage renal disease; Z68.41 Body mass index [BMI] 40.0-44.9, adult; E66.2 Morbid (severe) obesity with alveolar hypoventilation; I50.30 Unspecified diastolic (congestive) heart failure; I95.9 Hypotension, unspecified; E11.22 Type 2 diabetes mellitus with diabetic chronic kidney disease; D64.9 Anemia, unspecified; H54.7 Unspecified visual loss; R09.02 Hypoxemia; Z88.0 Allergy status to penicillin; Z99.2 Dependence on renal dialysis; Z79.899 Other long term (current) drug therapy; Z79.1 Long term (current) use of non-steroidal anti-inflammatories (NSAID); Z79.2 Long term (current) use of antibiotics
CPT/HCPCS: 36415; 71010; 80048; 80053; 82962; 83735; 83880; 84484; 85027; 85610; 85730; 93005; 94250; 94640; J1815; 99285-25

== ENCOUNTER 2017-07-18 02:58 | Emergency (ER) | payer MEDICARE, OTHER ==
[~2017-07-18] VITALS: Ht 175.3 cm; Wt 133.8 kg
[2017-07-18 03:09] VITALS: BP 173/78
--- NOTE | 2017-07-18 03:21 | PHYS DOC ---
Past Medical History Past Medical History: Diabetes-Type II, Hypertension, Renal Failure, Other Past Surgical History: Other Additional Past Surgical Histo: Left arm A/V fistula \2012,left retna tear Alcohol Use: None Drug Use: None Adult General Chief Complaint Chief Complaint: ITCHING HPI HPI Patient is a 47 year old -Al[place]ian male who presents with dry itchy skin. He states it started on things giving day and he's been using over-the- counter Benadryl and Benadryl cream without any relief. He states is happen before is never lasted this long. He denies any fevers or chills. He is end- stage renal dialyzes Tuesday. He is worried that his phosphorus levels are too high. Review of Systems Review of Systems Constitutional: Denies fever or chills [] Eyes: Denies change in visual acuity, redness, or eye pain [] HENT: Denies nasal congestion or sore throat [] Respiratory: Denies cough or shortness of breath [] Cardiovascular: No additional information not addressed in HPI [] GI: Denies abdominal pain, nausea, vomiting, bloody stools or diarrhea [] : Denies dysuria or hematuria [] Musculoskeletal: Denies back pain or joint pain [] Integument: Positive for dry itchy skin Neurologic: Denies headache, focal weakness or sensory changes [] Endocrine: Denies polyuria or polydipsia [] All other systems were reviewed and found to be within normal limits, except as documented in this note. Allergies Allergies Allergies Coded Allergies Type Severity Reaction Last Updated Verified Penicillins Allergy Intermediate 08/04/14 Yes Physical Exam Physical Exam Constitutional: Well developed, well nourished, no acute distress, non-toxic appearance. [] HENT: Normocephalic, atraumatic, bilateral external ears normal, oropharynx moist, no oral exudates, nose normal. [] Eyes: PERRLA, EOMI, conjunctiva normal, no discharge. [] Neck: Normal range of motion, no tenderness, supple, no stridor. [] Cardiovascular:Heart rate regular rhythm, no murmur [] Lungs & Thorax: Bilateral breath sounds clear to auscultation [] Abdomen: Bowel sounds normal, soft, no tenderness, no masses, no pulsatile masses. [] Skin: Warm, dry, no erythema, no rash. Dry itchy skin noted on extremities and abdomen Back: No tenderness, no CVA tenderness. [] Extremities: No tenderness, no cyanosis, no clubbing, ROM intact, no edema. [] Neurologic: Alert and oriented X 3, normal motor function, normal sensory function, no focal deficits noted. [] Psychologic: Affect normal, judgement normal, mood normal. [] Current Patient Data Vital Signs Vital Signs Date Time Temp Pulse Resp B/P (MAP) Pulse Ox O2 Delivery O2 Flow Rate FiO2 07/18/17 03:09 98.4 83 16 94 Room Air 98.4 Lab Values Laboratory Tests Test 07/18/17 03:55 White Blood Count 4.2 x10^3/uL (4.0-11.0) Red Blood Count 3.05 x10^6/uL (4.30-5.70) L Hemoglobin 10.0 g/dL (13.0-17.5) L Hematocrit 29.8 % (39.0-53.0) L Mean Corpuscular Volume 98 fL (79-100) Mean Corpuscular Hemoglobin 33 pg (25-35) Mean Corpuscular Hemoglobin Concent 34 g/dL (31-37) Red Cell Distribution Width 15.8 % (11.5-14.5) H Platelet Count 167 x10^3/uL (140-400) Neutrophils (%) (Auto) 58 % (31-73) Lymphocytes (%) (Auto) 28 % (24-48) Monocytes (%) (Auto) 8 % (0-9) Eosinophils (%) (Auto) 5 % (0-3) H Basophils (%) (Auto) 1 % (0-3) Neutrophils # (Auto) 2.4 x10^3uL (1.8-7.7) Lymphocytes # (Auto) 1.2 x10^3/uL (1.0-4.8) Monocytes # (Auto) 0.3 x10^3/uL (0.0-1.1) Eosinophils # (Auto) 0.2 x10^3/uL (0.0-0.7) Basophils # (Auto) 0.0 x10^3/uL (0.0-0.2) Sodium Level 142 mmol/L (136-145) Potassium Level 5.6 mmol/L (3.5-5.1) H Chloride Level 98 mmol/L (98-107) Carbon Dioxide Level 28 mmol/L (21-32) Anion Gap 16 (6-14) H Blood Urea Nitrogen 106 mg/dL (8-26) H Creatinine 18.9 mg/dL (0.7-1.3) H Estimated GFR (Cockcroft-Gault) 3.3 BUN/Creatinine Ratio 6 (6-20) Glucose Level 128 mg/dL (70-99) H Calcium Level 8.8 mg/dL (8.5-10.1) Phosphorus Level 8.1 mg/dL (2.6-4.7) H Total Bilirubin 0.3 mg/dL (0.2-1.0) Aspartate Amino Transferase (AST) 16 U/L (15-37) Alanine Aminotransferase (ALT) 18 U/L (16-63) Alkaline Phosphatase 87 U/L (46-116) Total Protein 7.0 g/dL (6.4-8.2) Albumin 4.0 g/dL (3.4-5.0) Albumin/Globulin Ratio 1.3 (1.0-1.7) Laboratory Tests 07/18/17 03:55 Laboratory Tests 07/18/17 03:55 EKG EKG [] Radiology/Procedures Radiology/Procedures [] Impressions: Dry itchy skin End-stage renal disease High phosphorus level Course & Med Decision Making Course & Med Decision Making Pertinent Labs and Imaging studies reviewed. (See chart for details) His phosphorus is elevated and it [employer]'s website regarding dry itchy skin and copied this into his discharge instructions. This time he needs to try [id number] remedies and try to get his phosphorus levels decreased by nephrology. He is being discharged to go to dialysis today with his lab work. Return precautions given. He is agreeable to the plan and being discharged in stable condition at this time. Dragon Disclaimer Dragon Disclaimer This electronic medical record was generated, in whole or in part, using a voice recognition dictation system. Departure Departure Impression: Primary Impression: Itching Disposition: HOME, SELF-CARE Condition: STABLE Referrals: MEGHAN COOPER MD (PCP) Patient Instructions: Itching-Brief Additional Instructions: Seen today for your itching in your phosphorus is high which can cause itching. You try Benadryl pills and creams without any relief. You can try other over-the -counter remedies such as suggested below. You should follow-up with your kidney doctor regarding other reasons or treatments to get her phosphorus level decreased to see if this will help your itching. Return back to ER if you develop fevers, open sores or other concerns. Creams that contain capsaicin, witch brianna, lanolin or camphormay also relieve itching. To prevent or treat dry skin, avoid long, hot showers or baths. Also, look for soaps that have natural, pure ingredients without harsh perfumes and chemicals. A moisturizing soap for sensitive skin can be a good choice. There are also bath products made with oatmeal created for dry, itchy skin that can be found at drug stores. Apply a moisturizing, high-water content gel, lotion or cream to the body right after bathing, while the skin is still damp. Avoid creams or lotions with alcohol. Ask your doctor or pharmacist about dry skin treatments that are available. RADAH HAWK MD Jul 18, 2017 03:21
[2017-07-18 04:06] LABS: BASO % 1 % (0-3); EOS % 5 % (0-3); HEMATOCRIT 29.8 % (39.0-53.0); LYMPH # 1.2 x10^3/uL (1.0-4.8); LYMPH % 28 % (24-48); MEAN CORPUSCULAR HEMOGLOBIN 33 pg (25-35); MEAN CORPUSCULAR HGB CONC 34 g/dL (31-37); MEAN CORPUSCULAR VOLUME 98 fL (79-100); MONO % 8 % (0-9); NEUT % 58 % (31-73); PLATELET COUNT 167 x10^3/uL (140-400); RED BLOOD COUNT 3.05 x10^6/uL (4.30-5.70); RED CELL DISTRIBUTION WIDTH 15.8 % (11.5-14.5); WHITE BLOOD COUNT 4.2 x10^3/uL (4.0-11.0)
[2017-07-18 04:17] LABS: CALCIUM 8.8 mg/dL (8.5-10.1); CREATININE 18.9 mg/dL (0.7-1.3); GFR 3.3; POTASSIUM 5.6 mmol/L (3.5-5.1)
[2017-07-18 04:22] LABS: ALBUMIN/GLOBULIN RATIO 1.3 (1.0-1.7); TOTAL BILIRUBIN 0.3 mg/dL (0.2-1.0)
== END 2017-07-18 04:44 | disposition home or self-care (01) ==
LOC: ER 02:58
DX: L29.8 Other pruritus (principal); E11.22 Type 2 diabetes mellitus with diabetic chronic kidney disease; I12.0 Hypertensive chronic kidney disease with stage 5 chronic kidney disease or end stage renal disease; N18.6 End stage renal disease; Z99.2 Dependence on renal dialysis; Z88.0 Allergy status to penicillin
CPT/HCPCS: 36415; 80053; 84100; 85025; 99284

== ENCOUNTER → 2019-10-17 | Outpatient (CLI) | payer MEDICARE, OTHER ==
[~2019-10-17] MED LIST changes: -AMLO10TA2 PO; +AMLO10TA8 PO; +AMLO5TAB10 PO; -AMLO5TAB2 PO; +LOSA-73 PO; -LOSA50TA2 PO; +MONT10TA49 PO; -MONT10TA6 PO
--- NOTE | 2019-10-17 13:54 | KCIC ---
MRI study of the left knee without contrast Clinical indications: Left knee pain for 10 days. M 25.562. No known injury. Hurts to bear weight. TECHNIQUE: Noncontrast MRI sequences of the left knee were performed in all 3 planes. COMPARISON: None available. FINDINGS: Patient motion artifact is seen which does degrade some of the sequences. The anterior and posterior cruciate ligaments are intact. The quadriceps and patellar tendons are intact. No articular surface tear of the medial or lateral meniscus is seen. The medial collateral ligament is intact and no meniscocapsular separation is seen. The iliotibial band and lateral collateral ligament complex and popliteus tendon are intact. No posterior lateral corner injury is seen. No bone contusion or fracture or marrow infiltrative process is seen. No focal osteochondral abnormality of the medial or lateral tibiofemoral joint compartments is seen. There is mild stress reaction bone marrow edema of the nonarticular side of the lateral portion of the lateral femoral condyle. This could represent a bone contusion as well but there is no history of trauma. The patella is normally aligned. There is severe chondromalacia patellae with loss of articular cartilage and a prominent subchondral cyst involving the entire medial patellar facet and apex. There is severe chondromalacia of the apposing medial trochlear articular cartilage with degenerative subchondral cyst formation here. There is mild degenerative spurring of the patellofemoral joint compartment. The medial and lateral retinacular ligaments are intact. There is circumferential subcutaneous soft tissue edema present. No muscle edema is seen. There is a Duque's cyst measuring 6.5 cm. There is a moderate knee joint effusion. No loose body is evident. IMPRESSION: Severe chondromalacia patellae and trochlear chondromalacia involving the medial aspect of the patellofemoral joint compartment with loss of articular cartilage and prominent subchondral cyst formation. Mild stress reaction bone marrow edema of the lateral nonarticular side of the lateral femoral condyle. No ligament or tendon or meniscal tear is seen. Moderate-sized knee joint effusion and prominent Duque's cyst. Moderate circumferential subcutaneous soft tissue edema. Electronically signed by: Chandu Ball MD (10/17/2019 1:51 PM) [id number]
== END ==
LOC: KCIC MRI 11:20
PROVIDERS: ATTEND Family Medicine
DX: M22.42 Chondromalacia patellae, left knee (principal); M25.462 Effusion, left knee; R60.9 Edema, unspecified; M71.22 Synovial cyst of popliteal space [Baker], left knee
CPT/HCPCS: 73721

== ENCOUNTER → 2020-12-31 | Outpatient (CLI) | payer MEDICARE ==
[~2020-12-31] MED LIST changes: +AMLO-186 PO; +AMLO-187 PO; -AMLO10TA8 PO; -AMLO5TAB10 PO; -CINA30TA2 PO; +CINA30TA24 PO
--- NOTE | 2020-12-31 16:30 | RAD ---
DUPLEX SONOGRAPHY OF THE PERIPHERAL ARTERIAL SYSTEM OF BOTH LOWER EXTREMITIES Clinical indications: Faintly palpable posterior tibial artery pulses. Decreased pedal pulses. Findings: Duplex sonography of the peripheral arterial system of both lower extremities including gra y scale and color flow and spectral waveform analysis was performed.Triphasic and biphasic waveforms are seen. No occlusive disease is seen. No significant plaque formation or stenosis is identified. The measurements were performed using the NASCET criteria. Peak systolic flow velocities are as follows: Right leg: common femoral artery- 142 cm/sec, profunda femoral artery -77 cm/sec, proximal superfici al femoral artery -115 cm/sec, mid superficial femoral artery -96 cm/sec, distal superficial femoral artery- 85 cm/sec, popliteal artery -82 cm/sec, proximal posterior tibial artery- 27 cm/sec, distal p osterior tibial artery- 68 cm/sec, peroneal artery- 62 cm/sec, anterior tibial artery- 42 cm/sec, laura salis pedis artery -117 cm/sec. Left leg: common femoral artery- 127 cm/sec, profunda femoral artery -94 cm/sec, proximal superficia l femoral artery- 125cm/sec, mid superficial femoral artery- 127 cm/sec, distal superficial femoral a rtery- 102 cm/sec, popliteal artery -103 cm/sec, proximal posterior tibial artery -57 cm/sec, distal posterior tibial artery- 54 cm/sec, peroneal artery -82 cm/sec, anterior tibial artery -27 cm/sec, do rsalis pedis artery- 138 cm/sec. IMPRESSION: No significant peripheral arterial vascular disease is seen by duplex sonographic evaluat ion. Electronically signed by: Chandu Ball MD (12/31/2020 4:27 PM) [id number]
== END ==
LOC: US 14:11
PROVIDERS: ATTEND Podiatrist
DX: R09.89 Other specified symptoms and signs involving the circulatory and respiratory systems (principal)
CPT/HCPCS: 93925